=== PATIENT | male | born 1970 | race Caucasian/White ===

== ENCOUNTER 2017-05-16 16:13 | Inpatient (IN) | payer MEDICAID ==
[~2017-05-16] VITALS: Ht 188 cm; Wt 94.6 kg
[~2017-05-16 16:13] MED LIST: BENZ1TAB2; FLUO1TAB3; PERP2TAB; QUET200T30
[2017-05-16 17:34] LABS: Basophils # (auto) 0 uL; Basophils % (auto) 0.5 % (0.0-2.0); CONDITION Y; Eosinophils # (auto) 0.2 uL; Eosinophils % (auto) 2.4 % (0.0-7.0); Lymphocytes # (auto) 2.8 uL; Lymphocytes % (auto) 35.1 % (10.0-50.0); Mean Corpuscular Hemoglobin 31.5 pg (28.0-32.0); Mean Corpuscular Hgb Conc. 34.6 g/dL (32.0-36.0); Mean Corpuscular Volume 91.1 fL (80.0-100.0); Mean Platelet Volume 7.1 fL (7.4-10.4); Monocytes # (auto) 0.6 uL; Monocytes % (auto) 6.9 % (0.0-12.0); Neutrophils # (auto) 4.4 uL; Neutrophils % (auto) 55.1 % (37.0-80.0); Platelet Count (auto) 307 10^3/uL (140-450); Red Cell Distribution Width 12.4 % (11.6-16.0)
[2017-05-16 17:46] LABS: Albumin 4.3 g/dL (3.4-5.0); BUN/Creatinine Ratio 17.4; Potassium 4.8 mmol/L (3.5-5.1)
[2017-05-16 17:49] LABS: Bilirubin, Total 0.2 mg/dL (0.2-1.0); Total Protein 7.9 g/dL (6.4-8.2)
[2017-05-16] MEDS ORDERED: SODIUM CHLORIDE 0.9% 1,000 ML IV ONE (20:04)
[2017-05-16] MEDS ORDERED: ONDANSETRON HCL 4 MG/2 ML VIAL IV ONE (20:15)
[2017-05-17 04:00] LABS: Urine RBC None Seen /hpf (0 - 3)
[2017-05-17 04:09] LABS: Urine Bilirubin Negative (Negative); Urine Blood Negative /uL (Negative); Urine Color Yellow (Yellow); Urine Glucose 4+ mg/dL (Normal); Urine Ketone Negative (Negative); Urine Mucus FEW (None Seen); Urine Nitrite Negative (Negative); Urine Urobilinogen Normal (Negative)
[2017-05-17] MEDS: SODIUM CHLORIDE 0.9% 1,000 ML IV SCH ×3 (07:40→21:31)
[2017-05-17] MEDS ORDERED: MORPHINE SULF INJ 2 MG/ML SYRINGE 1ML IV PRN (07:45)
[2017-05-17] MEDS ORDERED: DEXTROSE (50%) 50ML SYRG IV PRN ×3 (07:45→11:45)
[2017-05-17] MEDS ORDERED: ONDANSETRON HCL 4 MG/2 ML VIAL IV PRN (07:45)
[2017-05-17 09:00] VITALS: BP 129/82
[2017-05-17] MEDS ORDERED: SIMV40TA96 PO (09:50)
[2017-05-17] MEDS ORDERED: OMEP20CA74 PO (09:50)
[2017-05-17] MEDS ORDERED: CHOL500021 PO (09:50)
[2017-05-17] MEDS ORDERED: LISI-711 PO (09:50)
[2017-05-17] MEDS ORDERED: BENZ1TAB2 PO (09:50)
[2017-05-17] MEDS ORDERED: [UNRECOGNIZED DRUG - CODE] PO (09:50)
[2017-05-17] MEDS ORDERED: QUET200T3 PO (09:50)
[2017-05-17] MEDS ORDERED: METF-370 PO (09:50)
[2017-05-17] MEDS ORDERED: BUPR-40 PO (09:50)
[2017-05-17] MEDS ORDERED: QUET50TA PO (09:51)
[2017-05-17 09:55] VITALS: BP 129/82
[2017-05-17] MEDS ORDERED: ENOXAPARIN SOD 30 MG/0.3 ML SYRINGE SC SCH (10:00)
[2017-05-17] MEDS: PANTOPRAZOLE 40 MG TAB PO SCH ×2 (11:05→21:30)
[2017-05-17] MEDS: ENOXAPARIN SOD 40 MG/0.4 ML SYRINGE SC SCH (11:05)
[2017-05-17] MEDS: FAMOTIDINE (10MG/ML) 2ML VL IV SCH ×2 (11:06→21:30)
[2017-05-17] MEDS ORDERED: ACCU-CHEK COMFORT CURVE STRIP VI SCH ×2 (12:00)
[2017-05-17] MEDS: ACCU-CHEK COMFORT CURVE STRIP VI SCH ×3 (12:00→23:42)
[2017-05-17] MEDS ORDERED: InsuLIN REG 1unit/0.01ml Soln (100units/ml) SC SCH ×3 (12:00)
[2017-05-17] MEDS: InsuLIN REG 1unit/0.01ml Soln (100units/ml) SC SCH ×3 (12:28→23:42)
[2017-05-17 13:00] VITALS: BP 129/80
[2017-05-17 17:00] VITALS: BP 129/76
[2017-05-17] MEDS: buPROPion HCL 100 MG TAB PO SCH (18:50)
[2017-05-17 20:00] VITALS: BP 140/88
[2017-05-17] MEDS: QUEtiapine FUMARATE 100 MG TAB PO SCH (21:30)
[2017-05-17 22:00] VITALS: BP 140/88
[2017-05-17] MEDS ORDERED: VARENICLINE 1 MG PO SCH (22:00)
[2017-05-18] MEDS: SODIUM CHLORIDE 0.9% 1,000 ML IV SCH ×4 (04:25→23:36)
[2017-05-18 05:00] VITALS: BP 114/61
[2017-05-18] MEDS: ACCU-CHEK COMFORT CURVE STRIP VI SCH ×4 (06:01→23:52)
[2017-05-18] MEDS: InsuLIN REG 1unit/0.01ml Soln (100units/ml) SC SCH ×4 (06:01→23:52)
[2017-05-18] MEDS: buPROPion HCL 100 MG TAB PO SCH ×2 (06:15→18:57)
[2017-05-18 06:25] LABS: Basophils # (auto) 0 uL; Basophils % (auto) 0.8 % (0.0-2.0); CONDITION Y; Eosinophils # (auto) 0.1 uL; Eosinophils % (auto) 2.4 % (0.0-7.0); Hemoglobin 14.7 g/dL (13.5-17.5); Lymphocytes # (auto) 1.9 uL; Lymphocytes % (auto) 31.8 % (10.0-50.0); Mean Corpuscular Hemoglobin 31.1 pg (28.0-32.0); Mean Corpuscular Hgb Conc. 34.3 g/dL (32.0-36.0); Mean Corpuscular Volume 90.9 fL (80.0-100.0); Mean Platelet Volume 6.6 fL (7.4-10.4); Monocytes # (auto) 0.4 uL; Monocytes % (auto) 6.5 % (0.0-12.0); Neutrophils # (auto) 3.5 uL; Neutrophils % (auto) 58.5 % (37.0-80.0); Platelet Count (auto) 283 10^3/uL (140-450); Red Cell Distribution Width 12.5 % (11.6-16.0)
[2017-05-18 06:47] LABS: Amylase 44 U/L (25-115)
[2017-05-18 07:03] LABS: Albumin 3.5 g/dL (3.4-5.0); BUN/Creatinine Ratio 10.4; Bilirubin, Total 0.5 mg/dL (0.2-1.0); Calcium 8.5 mg/dL (8.5-10.1); Potassium 3.7 mmol/L (3.5-5.1); Total Protein 6.4 g/dL (6.4-8.2)
[2017-05-18 09:00] VITALS: BP 142/87
[2017-05-18] MEDS: FAMOTIDINE (10MG/ML) 2ML VL IV SCH ×2 (10:02→22:26)
[2017-05-18] MEDS: ENOXAPARIN SOD 40 MG/0.4 ML SYRINGE SC SCH (10:03)
[2017-05-18] MEDS: PANTOPRAZOLE 40 MG TAB PO SCH ×2 (10:03→22:24)
[2017-05-18 11:27] LABS: INR 0.99 (0.9-1.15); Partial Thromboplastin Time 29.2 sec (22.64-33.71); Prothrombin Time 10.8 sec (9.37-12.3)
[2017-05-18 13:00] VITALS: BP 140/84
[2017-05-18] MEDS ORDERED: SODIUM CHLORIDE LOCK 10 ML ONE (14:24)
[2017-05-18] MEDS ORDERED: LIDOCAINE VISCOUS 2% 15ML UD ONE (14:24)
[2017-05-18] MEDS ORDERED: diphenhdrAMINE HCL 50 MG/1 ML VL ONE (14:25)
[2017-05-18] MEDS: MIDAZOLAM HCL 5 MG/ML-1ML VIAL ONE ×2 (14:34→14:37)
[2017-05-18] MEDS: fentaNYL CITRATE 100 MCG/2 ML VL ONE ×2 (14:34→14:37)
[2017-05-18 17:00] VITALS: BP 132/82
[2017-05-18 20:00] VITALS: BP 131/79
[2017-05-18 21:52] VITALS: BP 131/79
[2017-05-18] MEDS: QUEtiapine FUMARATE 100 MG TAB PO SCH (22:24)
[2017-05-19 04:44] VITALS: BP 134/83
[2017-05-19] MEDS: SODIUM CHLORIDE 0.9% 1,000 ML IV SCH (06:16)
[2017-05-19] MEDS: buPROPion HCL 100 MG TAB PO SCH (06:30)
[2017-05-19] MEDS: ACCU-CHEK COMFORT CURVE STRIP VI SCH (06:30)
[2017-05-19] MEDS: InsuLIN REG 1unit/0.01ml Soln (100units/ml) SC SCH (06:34)
[2017-05-19 07:20] LABS: Albumin 3.4 g/dL (3.4-5.0); Bilirubin, Total 0.5 mg/dL (0.2-1.0); Calcium 8.5 mg/dL (8.5-10.1); Potassium 3.7 mmol/L (3.5-5.1); Total Protein 6.6 g/dL (6.4-8.2)
[2017-05-19 08:00] VITALS: BP 133/83
[2017-05-19 09:20] VITALS: BP 133/83
[2017-05-19] MEDS: FAMOTIDINE (10MG/ML) 2ML VL IV SCH (09:55)
[2017-05-19] MEDS: PANTOPRAZOLE 40 MG TAB PO SCH (09:55)
[2017-05-19] MEDS: ENOXAPARIN SOD 40 MG/0.4 ML SYRINGE SC SCH (09:56)
== END 2017-05-19 11:00 | disposition home or self-care (01) | DRG 241 ==
LOC: ER 16:15 → OVERFLOW 16:16 → CENTRAL 05-17 08:57
PROVIDERS: ADMIT Family Medicine; ATTEND Internal Medicine
PROC: 0DB68ZX Excision of Stomach, Via Natural or Artificial Opening Endoscopic, Diagnostic (ICD-10-PCS; principal; 2017-05-18 14:32)
DX: K29.70 Gastritis, unspecified, without bleeding (principal); K85.90 Acute pancreatitis without necrosis or infection, unspecified; K76.0 Fatty (change of) liver, not elsewhere classified; E11.65 Type 2 diabetes mellitus with hyperglycemia; I10 Essential (primary) hypertension; K57.30 Diverticulosis of large intestine without perforation or abscess without bleeding; E78.5 Hyperlipidemia, unspecified; F32.9 Major depressive disorder, single episode, unspecified; F17.210 Nicotine dependence, cigarettes, uncomplicated; Z80.0 Family history of malignant neoplasm of digestive organs
CPT/HCPCS: 36415; 43239; 74176; 80053; 80307; 80320; 81001; 82150; 82962; 83036; 83690; 85025; 85610; 85730; 93005; 96361; 96372; 96374; J1815; J2250; J2405; J3490

== ENCOUNTER 2021-01-31 19:57 | Emergency (ER) | payer MEDICAID ==
[~2021-01-31] VITALS: Ht 190.5 cm; Wt 104.3 kg
[~2021-01-31 19:57] MED LIST changes: -BENZ1TAB2; +BENZ1TAB2 PO; +BUPR150T8 PO; +CHOL500021 PO; -FLUO1TAB3; +LISI-711 PO; +METF-370 PO; +OMEP20CA74 PO; -PERP2TAB; -QUET200T30; +QUET50TA PO; +SIMV40TA2 PO; +VARE1PAK12 PO
[2021-01-31 21:08] LABS: Basophils # (auto) 0.1 10 ^3/uL (0-0.2); Basophils % (auto) 0.9 % (0.0-2.0); Eosinophils # (auto) 0.1 10 ^3/uL (0-0.8); Eosinophils % (auto) 1.5 % (0.0-7.0); Hematocrit 45.7 % (41.0-53.0); Hemoglobin 16.3 g/dL (13.5-17.5); Lymphocytes # (auto) 2.6 10 ^3/uL (0.4-5.4); Lymphocytes % (auto) 40.3 % (10.0-50.0); Mean Corpuscular Hemoglobin 32.8 pg (28.0-32.0); Mean Corpuscular Hgb Conc. 35.6 g/dL (32.0-36.0); Mean Corpuscular Volume 92.2 fL (80.0-100.0); Monocytes # (auto) 0.5 10 ^3/uL (0-1.3); Monocytes % (auto) 7.1 % (0.0-12.0); Neutrophils # (auto) 3.3 10 ^3/uL (1.6-8.6); Neutrophils % (auto) 50.2 % (37.0-80.0); Nucleated Red Blood Cells % 0.2 %; Platelet Count (auto) 248 10^3/uL (140-450); Red Blood Cells 4.96 10^6/uL (4.5-5.90); White Blood Cell 6.5 10^3/uL (4.4-10.8)
[2021-01-31 21:25] LABS: Albumin 4.2 g/dL (3.4-5.0); Anion Gap 3 (5-15); Blood Urea Nitrogen 13 mg/dL (7-18); Calcium 9.6 mg/dL (8.5-10.1); Carbon Dioxide 26 mmol/L (21-32); Chloride 109 mmol/L (98-107); Glucose 218 mg/dL (74-106); Magnesium 2.2 mg/dL (1.6-2.6); Sodium 138 mmol/L (136-145)
[2021-01-31 21:31] LABS: Alanine Aminotransferase 38 U/L (16-61); Alkaline Phosphatase 75 U/L (45-117); Aspartate Aminotransferase 12 U/L (15-37); BUN/Creatinine Ratio 10.5; Bilirubin, Total 0.3 mg/dL (0.2-1.0); GFR African American 79 mL/min; GFR Non-African American 65 mL/min; Total Protein 7.6 g/dL (6.4-8.2)
[2021-01-31 21:34] LABS: INR 0.97 (0.9-1.15); Partial Thromboplastin Time 26.5 sec (23.0-31.2)
[2021-02-01 01:11] VITALS: BP 115/65
== END 2021-02-01 02:23 | disposition home or self-care (01) ==
LOC: ER 19:58
DX: R07.89 Other chest pain (principal); E11.9 Type 2 diabetes mellitus without complications; F17.210 Nicotine dependence, cigarettes, uncomplicated; E78.5 Hyperlipidemia, unspecified
CPT/HCPCS: 36415; 71045; 80053; 83735; 83880; 84443; 84484; 85025; 85610; 85730; 93005